=== PATIENT | male | born 1980 | race Caucasian/White ===

== ENCOUNTER 2017-01-11 08:34 | Emergency (ER) | payer MEDICAID ==
[~2017-01-11] VITALS: Ht 180.3 cm; Wt 99.0 kg
[2017-01-11] MEDS ORDERED: SODIUM CHLORIDE 0.9% 1,000 ML IV ONE (10:13)
[2017-01-11] MEDS ORDERED: ONDANSETRON 4MG ODT PO ONE (10:15)
[2017-01-11] MEDS ORDERED: MORPHINE SULFATE 4 MG/ML CPJ (NOT FOR IM USE) IV ONE (10:15)
[2017-01-11] MEDS ORDERED: CLINDAMYCIN 600 MG in DEXTROSE 5% WATER 50 ML IV ONE (10:15)
[2017-01-11 10:55] LABS: BASOPHILS % 0.5 % (0.0-2.0); EOSINOPHILS % 0.9 % (0.0-5.0); HEMATOCRIT. 41.1 % (42.0-52.0); HEMOGLOBIN. 13.9 g/dL (14.0-18.0); LYMPHOCYTES % 13.7 % (20.0-50.0); MEAN CORPUSCULAR HEMOGLOBIN 26.7 pg (28.0-32.0); MEAN CORPUSCULAR VOLUME 78.8 fL (80.0-94.0); MEAN PLATELET VOLUME 9.6 fl (7.4-10.4); MONOCYTES % 7.6 % (2.0-8.0); NEUTROPHILS % 77.3 % (40.0-76.0); PLATELET 219 x1000/uL (130-400); RED BLOOD CELL COUNT 5.22 mill/uL (4.7-6.1); RED CELL DISTRIBUTION WIDTH 14.2 % (11.6-14.6)
[2017-01-11 11:02] LABS: CHLORIDE 100 mEq/L (98-107)
[2017-01-11 11:11] LABS: CARBON DIOXIDE 29 mEq/L (21-32)
[2017-01-11] MEDS ORDERED: ACETAMINOPHEN 500MG TABLET PO ONE (11:45)
[2017-01-11] MEDS ORDERED: INSULIN REGULAR (HUMULIN R) UD 100 UNITS/ML SYR SUBCUT ONE (12:00)
[2017-01-11] MEDS ORDERED: INSULIN REGULAR (HUMULIN R) 300UNITS/3ML SUBCUT SCH (12:19)
[2017-01-11 13:34] VITALS: BP 165/99
== END 2017-01-11 13:36 | disposition home or self-care (01) ==
LOC: ER 08:34
DX: E11.9 Type 2 diabetes mellitus without complications (principal); L03.312 Cellulitis of back [any part except buttock and flank]
CPT/HCPCS: 36415; 80053; 82962; 85025; 96361; 96365; 96372; 99284; J1815; J3490; J7030; Z7610; J2270; J7060; Q0162

== ENCOUNTER 2017-02-08 07:34 | Emergency (ER) | payer MEDICAID ==
[~2017-02-08] VITALS: Ht 180.3 cm; Wt 100.0 kg
[2017-02-08] MEDS ORDERED: LIDOCAINE HCL 1%/EPI 1:200,000 30 ML VIAL MC ONE (12:00)
[2017-02-08] MEDS ORDERED: TETANUS, DIPHTHERIA, PERTUSSIS VAC/PF 0.5ML (>7YR OLD) IM ONE (12:00)
[2017-02-08 12:55] LABS: GLUCOSE URINE TRACE (NEGATIVE); KETONES URINE NEGATIVE (NEGATIVE); LEUKOCYTE ESTERASE URINE NEGATIVE (NEGATIVE); NITRITE URINE NEGATIVE (NEGATIVE); OCCULT BLOOD URINE NEGATIVE (NEGATIVE); PH URINE 6.5 (4.5-8.0); PROTEIN URINE NEGATIVE (NEGATIVE); UROBILINOGEN URINE 0.2 E.U./dL (0.2-1.0)
[2017-02-08 12:58] LABS: CLARITY URINE CLEAR (CLEAR); COLOR URINE YELLOW (YELLOW)
[2017-02-08 13:12] VITALS: BP 138/80
== END 2017-02-08 13:13 | disposition home or self-care (01) ==
LOC: ER 08:28
DX: N47.1 Phimosis (principal); E11.9 Type 2 diabetes mellitus without complications; L02.31 Cutaneous abscess of buttock; L03.317 Cellulitis of buttock; R39.11 Hesitancy of micturition
CPT/HCPCS: 10060; 81001; 87070; 87077; 87086; 87205; 90471; 90715; 99284; Z7610

== ENCOUNTER 2017-02-10 13:02 | Inpatient (IN) | payer MEDICAID, OTHER ==
[~2017-02-10] VITALS: Ht 180.3 cm; Wt 100.0 kg
[2017-02-10] MEDS ORDERED: ONDANSETRON HCL 4MG/2ML VIAL IV STA (14:38)
[2017-02-10] MEDS ORDERED: MORPHINE SULFATE 4 MG/ML CPJ (NOT FOR IM USE) IV STA (14:38)
[2017-02-10] MEDS ORDERED: SODIUM CHLORIDE 0.9% 1,000 ML IV ONE (14:38)
[2017-02-10] MEDS ORDERED: VANCOMYCIN 1 G PREMIX 200 ML IV ONE (14:45)
[2017-02-10] MEDS ORDERED: SODIUM CHLORIDE 0.9% 1000ML BAG (SEPSIS BOLUS) IV ONE (14:45)
[2017-02-10] MEDS ORDERED: BACITRACIN ZINC OINT UDPKT TOP ONE (14:45)
[2017-02-10] MEDS ORDERED: PIPERACILLIN/TAZ 3.375G PREMIX 50 ML IV ONE (14:45)
[2017-02-10 14:56] LABS: BASOPHILS % 0.3 % (0.0-2.0); EOSINOPHILS % 2.1 % (0.0-5.0); HEMATOCRIT. 41.9 % (42.0-52.0); HEMOGLOBIN. 14.1 g/dL (14.0-18.0); LYMPHOCYTES % 11.1 % (20.0-50.0); MEAN CORPUSCULAR HEMOGLOBIN 26.6 pg (28.0-32.0); MEAN CORPUSCULAR VOLUME 79.3 fL (80.0-94.0); MEAN PLATELET VOLUME 8.8 fl (7.4-10.4); NEUTROPHILS % 77.5 % (40.0-76.0); PLATELET 238 x1000/uL (130-400); RED BLOOD CELL COUNT 5.28 mill/uL (4.7-6.1); RED CELL DISTRIBUTION WIDTH 14.5 % (11.6-14.6)
[2017-02-10 15:04] LABS: PROTHROMBIN TIME 10.4 sec (9.4-11.6)
[2017-02-10 15:14] LABS: BETA HYDROXYBUTYRATE 0.3 mMol/L (0.0-0.3); CARBON DIOXIDE 27 mEq/L (21-32); CHLORIDE 102 mEq/L (98-107); TROPONIN I < 0.02 ng/mL (0.00-0.04)
[2017-02-10] MEDS ORDERED: LIDOCAINE HCL 1%/EPI 1:200,000 30 ML VIAL MC ONE (15:30)
[2017-02-10 17:32] LABS: CLARITY URINE CLEAR (CLEAR); COLOR URINE YELLOW (YELLOW); GLUCOSE URINE TRACE (NEGATIVE); KETONES URINE TRACE (NEGATIVE); LEUKOCYTE ESTERASE URINE NEGATIVE (NEGATIVE); NITRITE URINE NEGATIVE (NEGATIVE); OCCULT BLOOD URINE NEGATIVE (NEGATIVE); PH URINE 5.5 (4.5-8.0); PROTEIN URINE NEGATIVE (NEGATIVE); SPECIFIC GRAVITY URINE 1.019 (1.005-1.030)
[2017-02-10] MEDS ORDERED: VANCOMYCIN 1 G PREMIX 200 ML IV SCH (18:15)
[2017-02-10] MEDS ORDERED: LORAZEPAM 2MG/ML CPJ IV PRN (18:15)
[2017-02-10] MEDS ORDERED: ONDANSETRON HCL 4MG/2ML VIAL IV PRN (18:15)
[2017-02-10] MEDS ORDERED: NITROGLYCERIN 0.4MG TABLET SL SL PRN (18:15)
[2017-02-10] MEDS ORDERED: DIPHENHYDRAMINE 50MG/ML VIAL IV PRN (18:15)
[2017-02-10] MEDS ORDERED: MAGNESIUM/ALUMINUM HYDROXIDE/SIMETHICONE 30ML UDC PO PRN (18:15)
[2017-02-10] MEDS ORDERED: ACETAMINOPHEN 325MG TABLET PO PRN (18:15)
[2017-02-10] MEDS ORDERED: DEXTROSE 50% WATER 50ML SYRINGE IV PRN (18:15)
[2017-02-10] MEDS ORDERED: GUAIFENESIN 200MG/10ML SUGAR FREE UDC PO PRN (18:15)
[2017-02-10] MEDS ORDERED: CLONIDINE 0.1MG TABLET PO PRN (18:15)
[2017-02-10] MEDS ORDERED: IPRATROPIUM/ALBUTEROL 0.5-3(2.5)MG/3ML NEB INH PRN (18:15)
[2017-02-10] MEDS ORDERED: DOCUSATE SODIUM 100MG CAPSULE PO PRN (18:15)
[2017-02-10] MEDS ORDERED: KETOROLAC 15MG/ML VIAL IV PRN (18:20)
[2017-02-10] MEDS ORDERED: INSULIN LISPRO 100 UNITS/ML SUBCUT SCH (18:20)
[2017-02-10] MEDS ORDERED: NA PHOS,M-B/NA PHOS,DI-BA ENEMA 118ML PR PRN (20:00)
[2017-02-10] MEDS ORDERED: ZOLPIDEM TARTRATE 5MG TABLET PO PRN (20:30)
[2017-02-10 20:59] VITALS: BP 145/84
[2017-02-10] MEDS ORDERED: METOPROLOL TARTRATE 25MG TABLET PO SCH (21:00)
[2017-02-10] MEDS ORDERED: FAMOTIDINE 20MG/2ML VIAL IV SCH (21:00)
[2017-02-10] MEDS ORDERED: BLOOD SUGAR DIAGNOSTIC STRIP TEST SCH (21:00)
[2017-02-10] MEDS ORDERED: LISINOPRIL 20MG TABLET PO SCH (21:00)
[2017-02-10] MEDS ORDERED: PIPERACILLIN/TAZ 3.375G PREMIX 50 ML IV SCH (23:00)
[2017-02-11] MEDS ORDERED: VANCOMYCIN 1 G PREMIX 200 ML IV SCH
[2017-02-11] MEDS ORDERED: ENOXAPARIN 30MG/0.3ML SYR SUBCUT SCH (09:00)
[2017-02-11 09:43] LABS: *AMPHETAMINES SCREEN URINE NEGATIVE (NEGATIVE); *BARBITURATES SCREEN URINE NEGATIVE (NEGATIVE); *BENZODIAZEPINES SCREEN URINE NEGATIVE (NEGATIVE); *COCAINE SCREEN URINE NEGATIVE (NEGATIVE); CANNABINOID URINE SCREEN PRESUMTIVE POSITIVE (NEGATIVE); METHADONE URINE SCREEN NEGATIVE (NEGATIVE); OPIATES URINE SCREEN PRESUMTIVE POSITIVE (NEGATIVE); PHENCYCLIDINE URINE SCREEN NEGATIVE (NEGATIVE)
== END 2017-02-10 22:23 | disposition left against medical advice (07) | DRG 383 ==
LOC: ER 14:27 → CANRESERV 15:52 → ENRESERV 15:52 → 8WST 17:10 → EDBEDREQSVC 17:13 → EDBEDREQ 17:13 → ENRESERV 20:41
PROVIDERS: ADMIT Internal Medicine; ATTEND Internal Medicine
PROC: 0H90XZZ Drainage of Scalp Skin, External Approach (ICD-10-PCS; principal; 2017-02-10)
DX: L03.811 Cellulitis of head [any part, except face] (principal); E44.0 Moderate protein-calorie malnutrition; E11.65 Type 2 diabetes mellitus with hyperglycemia; I10 Essential (primary) hypertension; L02.31 Cutaneous abscess of buttock; F17.210 Nicotine dependence, cigarettes, uncomplicated; Z86.14 Personal history of Methicillin resistant Staphylococcus aureus infection; Z91.14 Patient's other noncompliance with medication regimen; Z91.19 Patient's noncompliance with other medical treatment and regimen; Z68.30 Body mass index [BMI] 30.0-30.9, adult
CPT/HCPCS: 10061; 36415; 80053; 80305; 81001; 82010; 82962; 83036; 83605; 83880; 84484; 85025; 85610; 87040; 87086; 93005; 96365; 96366; 96367; 96375; 99285; J1885; J2270; J2405; J2543; J3370; J7030

== ENCOUNTER 2017-02-26 20:02 | Emergency (ER) | payer MEDICAID, OTHER ==
[~2017-02-26] VITALS: Ht 180.3 cm; Wt 91.8 kg
[2017-02-26 22:32] LABS: CLARITY URINE CLEAR (CLEAR); COLOR URINE YELLOW (YELLOW); GLUCOSE URINE NEGATIVE (NEGATIVE); KETONES URINE TRACE (NEGATIVE); LEUKOCYTE ESTERASE URINE NEGATIVE (NEGATIVE); NITRITE URINE NEGATIVE (NEGATIVE); OCCULT BLOOD URINE NEGATIVE (NEGATIVE); PROTEIN URINE NEGATIVE (NEGATIVE); SPECIFIC GRAVITY URINE 1.032 (1.005-1.030)
[2017-02-26 23:00] LABS: BASOPHILS % 0.9 % (0.0-2.0); HEMATOCRIT. 38.7 % (42.0-52.0); HEMOGLOBIN. 13.2 g/dL (14.0-18.0); MEAN CORPUSCULAR VOLUME 79.3 fL (80.0-94.0); MEAN PLATELET VOLUME 9.2 fl (7.4-10.4); NEUTROPHILS % 56.1 % (40.0-76.0); PLATELET 345 x1000/uL (130-400); RED BLOOD CELL COUNT 4.88 mill/uL (4.7-6.1); RED CELL DISTRIBUTION WIDTH 15.1 % (11.6-14.6)
[2017-02-26 23:04] LABS: CHLORIDE 101 mEq/L (98-107)
[2017-02-26 23:05] LABS: PROTHROMBIN TIME 10.1 sec (9.4-11.6)
[2017-02-26 23:07] LABS: CARBON DIOXIDE 29 mEq/L (21-32)
[2017-02-27 01:30] VITALS: BP 124/87
== END 2017-02-27 01:55 | disposition home or self-care (01) ==
LOC: ER 21:51
DX: R33.9 Retention of urine, unspecified (principal); E11.9 Type 2 diabetes mellitus without complications; F12.10 Cannabis abuse, uncomplicated; Z79.84 Long term (current) use of oral hypoglycemic drugs
CPT/HCPCS: 36415; 80053; 81003; 85025; 85610; 99284; Z7610; A4315

== ENCOUNTER 2021-10-04 16:16 | Emergency (ER) | payer MEDICAID ==
[~2021-10-04] VITALS: Ht 177.8 cm; Wt 100.0 kg
[2021-10-04] MEDS ORDERED: ONDANSETRON HCL 4MG/2ML INJ IV STA (17:21)
[2021-10-04] MEDS ORDERED: SODIUM CHLORIDE 0.9% 1,000 ML IV ONE (17:30)
[2021-10-04 17:58] LABS: BASOPHILS % 0.3 % (0.0-2.0); EOSINOPHILS % 0.1 % (0.0-5.0); HEMATOCRIT. 46.2 % (42.0-52.0); HEMOGLOBIN. 15.5 g/dL (14.0-18.0); LYMPHOCYTES % 8.4 % (20.0-50.0); MEAN CORPUSCULAR HEMOGLOBIN 27.4 pg (28.0-32.0); MEAN CORPUSCULAR VOLUME 81.8 fL (80.0-94.0); MEAN PLATELET VOLUME 9.6 fl (7.4-10.4); NEUTROPHILS % 89.2 % (40.0-76.0); PLATELET 250 x1000/uL (130-400); RED BLOOD CELL COUNT 5.65 mill/uL (4.7-6.1); RED CELL DISTRIBUTION WIDTH 14.4 % (11.6-14.6)
[2021-10-04 18:00] LABS: CHLORIDE 102 mEq/L (98-107)
[2021-10-04 18:03] LABS: PROTHROMBIN TIME 10.7 sec (9.6-11.0)
[2021-10-04 18:10] LABS: BETA HYDROXYBUTYRATE 1.7 mMol/L (0.0-0.3); ETHANOL BLOOD < 10 mg/dL
[2021-10-04 18:22] LABS: CLARITY URINE CLEAR (CLEAR); COLOR URINE YELLOW (YELLOW); KETONES URINE 4+ (NEGATIVE); LEUKOCYTE ESTERASE URINE NEGATIVE (NEGATIVE); NITRITE URINE NEGATIVE (NEGATIVE); OCCULT BLOOD URINE NEGATIVE (NEGATIVE); PROTEIN URINE 1+ (NEGATIVE); SPECIFIC GRAVITY URINE 1.026 (1.005-1.030)
[2021-10-04] MEDS ORDERED: KETOROLAC 15MG/ML VIAL IV ONE (18:30)
[2021-10-04 18:39] LABS: *AMPHETAMINES SCREEN URINE NEGATIVE (NEGATIVE); *BARBITURATES SCREEN URINE NEGATIVE (NEGATIVE); *BENZODIAZEPINES SCREEN URINE NEGATIVE (NEGATIVE); *COCAINE SCREEN URINE NEGATIVE (NEGATIVE); CANNABINOID URINE SCREEN PRESUMTIVE POSITIVE (NEGATIVE); METHADONE URINE SCREEN NEGATIVE (NEGATIVE); OPIATES URINE SCREEN NEGATIVE (NEGATIVE); PHENCYCLIDINE URINE SCREEN NEGATIVE (NEGATIVE)
[2021-10-04 18:53] VITALS: BP 166/101
[2021-10-04] MEDS ORDERED: ONDA4TAB5 MT (20:53)
[2021-10-04] MEDS ORDERED: FAMO-135 MT (20:53)
== END 2021-10-04 21:06 | disposition home or self-care (01) ==
LOC: ER 16:16
DX: R10.13 Epigastric pain (principal); R11.2 Nausea with vomiting, unspecified; E11.9 Type 2 diabetes mellitus without complications
CPT/HCPCS: 36415; 74176; 80053; 80305; 80320; 81003; 82010; 82962; 83690; 85025; 85610; 93005; 96361; 96374; 96375; 99285; J1885; J2405; J7030; G0480

== ENCOUNTER 2021-10-10 15:04 | Emergency (ER) | payer MEDICAID ==
[~2021-10-10] VITALS: Ht 172.7 cm; Wt 100.0 kg
[~2021-10-10 15:04] MED LIST: FAMO-135 MT; ONDA4TAB5 MT
[2021-10-10] MEDS ORDERED: KETOROLAC 15MG/ML VIAL IV NR (21:41)
[2021-10-10] MEDS ORDERED: ONDANSETRON HCL 4MG/2ML INJ IV NR (21:41)
[2021-10-10] MEDS ORDERED: KETOROLAC 30MG/ML VIAL IV STA (21:41)
[2021-10-10] MEDS ORDERED: ONDANSETRON HCL 4MG/2ML INJ IV STA (21:41)
[2021-10-10] MEDS ORDERED: SODIUM CHLORIDE 0.9% 1,000 ML IV ONE (21:45)
[2021-10-10 22:20] LABS: CLARITY URINE CLOUDY (CLEAR); COLOR URINE DARK YELLOW (YELLOW); KETONES URINE 4+ (NEGATIVE); LEUKOCYTE ESTERASE URINE 1+ (NEGATIVE); NITRITE URINE NEGATIVE (NEGATIVE); OCCULT BLOOD URINE NEGATIVE (NEGATIVE); PH URINE 6.5 (4.5-8.0); PROTEIN URINE 1+ (NEGATIVE)
[2021-10-10 23:46] LABS: CHLORIDE 102 mEq/L (98-107)
[2021-10-10 23:57] LABS: BASOPHILS % 0.8 % (0.0-2.0); EOSINOPHILS % 1.3 % (0.0-5.0); HEMATOCRIT. 46.9 % (42.0-52.0); LYMPHOCYTES % 39.9 % (20.0-50.0); MEAN CORPUSCULAR HEMOGLOBIN 28.1 pg (28.0-32.0); MEAN CORPUSCULAR VOLUME 82.4 fL (80.0-94.0); MEAN PLATELET VOLUME 9.4 fl (7.4-10.4); MONOCYTES % 9.6 % (2.0-8.0); NEUTROPHILS % 48.4 % (40.0-76.0); PLATELET 259 x1000/uL (130-400); RED BLOOD CELL COUNT 5.69 mill/uL (4.7-6.1); RED CELL DISTRIBUTION WIDTH 14.8 % (11.6-14.6)
[2021-10-11] MEDS ORDERED: FAMO-135 PO (00:19)
[2021-10-11 01:01] VITALS: BP 142/82
== END 2021-10-11 01:02 | disposition home or self-care (01) ==
LOC: ER 15:04
DX: R10.9 Unspecified abdominal pain (principal); M54.9 Dorsalgia, unspecified; R11.10 Vomiting, unspecified; R19.7 Diarrhea, unspecified; E11.9 Type 2 diabetes mellitus without complications; F12.10 Cannabis abuse, uncomplicated
CPT/HCPCS: 36415; 76700; 80053; 81003; 83690; 85025; 93005; 96361; 96374; 96375; 99285; J1885; J2405; J7030

== ENCOUNTER 2023-01-01 20:38 | Emergency (ER) | payer MEDICAID ==
[~2023-01-01] VITALS: Ht 177.8 cm; Wt 92.2 kg
[~2023-01-01 20:38] MED LIST changes: +FAMO-135 PO
[2023-01-01 20:42] VITALS: O2SAT 100
[2023-01-01 21:25] LABS: BASOPHILS % 0.7 % (0.0-2.0); EOSINOPHILS % 0.8 % (0.0-5.0); HEMATOCRIT. 45.6 % (42.0-52.0); HEMOGLOBIN. 15.7 g/dL (14.0-18.0); LYMPHOCYTES % 19.5 % (20.0-50.0); MEAN CORPUSCULAR HGB CONC 34.4 g/dL (31.0-37.0); MEAN CORPUSCULAR VOLUME 81.4 fL (80.0-94.0); MEAN PLATELET VOLUME 9.7 fl (7.4-10.4); MONOCYTES % 10.3 % (2.0-8.0); NEUTROPHILS % 68.7 % (40.0-76.0); PLATELET 254 x1000/uL (130-400); RED CELL DISTRIBUTION WIDTH 14.2 % (11.6-14.6)
[2023-01-01 21:28] LABS: CHLORIDE 96 mEq/L (98-107); INDEX HEMOLYSI 1 (1-3); INDEX ICTERIC 1 (1-4); INDEX LIPEMIC 1 (1-3); POTASSIUM 3.5 mEq/L (3.5-5.1); SODIUM 134 mEq/L (136-145)
[2023-01-01 21:31] LABS: CLARITY URINE CLEAR (CLEAR); COLOR URINE DARK YELLOW (YELLOW); GLUCOSE URINE NEGATIVE (NEGATIVE); KETONES URINE 4+ (NEGATIVE); LEUKOCYTE ESTERASE URINE NEGATIVE (NEGATIVE); NITRITE URINE NEGATIVE (NEGATIVE); OCCULT BLOOD URINE NEGATIVE (NEGATIVE); PROTEIN URINE 1+ (NEGATIVE); SPECIFIC GRAVITY URINE 1.028 (1.005-1.030)
[2023-01-01 21:33] LABS: PARTIAL THROMBOPLASTIN TIME 30.3 sec (23.4-31.0); PROTHROMBIN TIME 10.8 sec (9.6-11.0)
[2023-01-01 21:34] LABS: BACTERIA URINE NONE SEEN; RBC URINE 0-2 /hpf (0-2); SQUAMOUS EPITHELIAL CELL URINE NONE SEEN /lpf (RARE/1+); YEAST URINE NONE SEEN
[2023-01-01 21:35] LABS: ALANINE AMINOTRANSFERASE 33 IU/L (13-61); ASPARTATE AMINOTRANSFERASE 20 IU/L (15-37); CALCIUM 9.1 mg/dL (8.5-10.1); CARBON DIOXIDE 25 mEq/L (21-32); GLUCOSE 139 mg/dL (70-105); UREA NITROGEN BLOOD 11 mg/dL (7-21)
[2023-01-01 21:39] LABS: BILIRUBIN TOTAL 1.2 mg/dL (0.1-1.0); PROTEIN TOTAL 8.3 g/dL (6.0-8.3); TROPONIN I HIGH SENSITIVITY 10 ng/L (<78)
[2023-01-01 21:48] LABS: WBC URINE 0-2 /hpf (0-2)
[2023-01-01 21:49] LABS: MUCUS URINE 1+ /lpf (NONE/TRACE)
[2023-01-02] MEDS ORDERED: DICYCLOMINE 10 MG/5 ML ORAL SYR PO STA (03:33)
[2023-01-02] MEDS ORDERED: MAGNESIUM/ALUMINUM HYDROXIDE/SIMETHICONE 30ML UDC PO STA (03:33)
[2023-01-02] MEDS ORDERED: ONDANSETRON HCL 4MG TABLET PO ONE (03:45)
[2023-01-02] MEDS ORDERED: ONDA4TAB50 MT ×2 (04:09)
[2023-01-02] MEDS ORDERED: METO-293 MT (04:20)
[2023-01-02 06:11] VITALS: BP 121/75; PULSE 76; RESP 12; TEMP 98.1
== END 2023-01-02 06:18 | disposition home or self-care (01) ==
LOC: ER 20:38
DX: R07.89 Other chest pain (principal); R10.9 Unspecified abdominal pain; F12.10 Cannabis abuse, uncomplicated; E11.9 Type 2 diabetes mellitus without complications
CPT/HCPCS: 99285; 71045; 80053; 81003; 85025; 85379; 85610; 85730; 84484; 36415; 93005; Q0162